=== PATIENT | male | born 1980 | race African-American/Black ===

== ENCOUNTER 2018-09-02 10:48 | Emergency (ER) | payer OTHER ==
[2018-09-02 11:31] VITALS: BP 146/83
--- NOTE | 2018-09-02 11:31 | Emergency Department Report ---
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 Due to findings the following was ordered: XR T-spine ED Disposition for MSE Condition: Stable
--- NOTE | 2018-09-02 12:51 | XRay Report ---
THORACIC SPINE, 2 VIEWS: HISTORY: Upper back pain, radiates down right arm. Normal bone mineralization. No evidence for compression deformity, malalignment, or bone lesion. Mild scoliosis of the thoracic spine is noted. The posterior ribs are intact. The paraspinal soft tissues are within normal limits. IMPRESSION: Mild scoliosis. No evidence for acute injury.
--- NOTE | 2018-09-02 14:31 | Emergency Department Report ---
ED Upper Extremity Inj HPI - General Chief Complaint: Shoulder Injury Stated Complaint: PAIN ON (R) SHOULDER/NECK PAIN Time Seen by Provider: 09/02/18 11:28 Source: patient Mode of arrival: Ambulatory Limitations: No Limitations - History of Present Illness Initial Comments: This is a 37-year-old male who presents to the emergency room with pain to right shoulder radiating down the fingers. Patient reports pain is worse between shoulder blades. Patient states majority of the pain is on the right side. Pain is intermittent and tend on a 10 on pain scale. Patient reports pain is worse with movement. He denies swelling, bruising, warmth, numbness or tingling, or weakness. MD Complaint: Injury to:: right, shoulder Onset/Timin -: month(s) Other Extremity Injury: Shoulder: Right Other Injuries: none Handedness: right Place: home Severity scale (0 -10): 7 Improves With: none Worsens With: movement of extremity Associated Symptoms: denies other symptoms Treatments Prior to Arrival: NSAIDS - Related Data Home Medications Medication Instructions Recorded Confirmed Last Taken Aspirin [Aspirin BABY CHEW TAB] 81 mg PO QDAY 05/01/16 05/01/16 Unknown Previous Rx's Medication Instructions Recorded Last Taken Type AtorvaSTATin [Lipitor] 80 mg PO QHS #30 tablet 07/13/15 Unknown Rx Metoprolol [Lopressor TAB] 25 mg PO BID #60 tablet 07/13/15 Unknown Rx Prasugrel [Effient] 10 mg PO QDAY #30 tablet 07/13/15 Unknown Rx Naproxen [Naprosyn] 500 mg PO TID PRN #20 tablet 09/02/18 Unknown Rx methOCARBAMOL [Robaxin TAB] 500 mg PO BID PRN #15 tab 09/02/18 Unknown Rx Allergies Allergy/AdvReac Type Severity Reaction Status Date / Time No Known Allergies Allergy Verified 09/02/18 10:51 ED Review of Systems ROS: Stated complaint: PAIN ON (R) SHOULDER/NECK PAIN Other details as noted in HPI Constitutional: denies: chills, fever Respiratory: denies: cough, shortness of breath, wheezing Cardiovascular: denies: chest pain, palpitations Gastrointestinal: denies: abdominal pain, nausea, diarrhea Musculoskeletal: arthralgia (right shoulder). denies: back pain, joint swelling Skin: denies: rash, lesions Neurological: denies: headache, weakness, paresthesias Psychiatric: denies: anxiety, depression ED Past Medical Hx - Past Medical History Hx Hypertension: Yes Hx Heart Attack/AMI: Yes Hx Congestive Heart Failure: No Hx Deep Vein Thrombosis: No Additional medical history: HIGH CHOLESTEROL - Surgical History Hx Coronary Stent: Yes (4) Hx Internal Defibrillator: No - Social History Smoking Status: Never Smoker Substance Use Type: None - Medications Home Medications: Home Medications Medication Instructions Recorded Confirmed Last Taken Type AtorvaSTATin [Lipitor] 80 mg PO QHS #30 tablet 07/13/15 05/01/16 Unknown Rx Metoprolol [Lopressor TAB] 25 mg PO BID #60 tablet 07/13/15 05/01/16 Unknown Rx Prasugrel [Effient] 10 mg PO QDAY #30 tablet 07/13/15 05/01/16 Unknown Rx Aspirin [Aspirin BABY CHEW TAB] 81 mg PO QDAY 05/01/16 05/01/16 Unknown History Naproxen [Naprosyn] 500 mg PO TID PRN #20 tablet 09/02/18 Unknown Rx methOCARBAMOL [Robaxin TAB] 500 mg PO BID PRN #15 tab 09/02/18 Unknown Rx ED Physical Exam - General Limitations: No Limitations General appearance: alert, in no apparent distress - Neck Neck exam: Present: normal inspection - Respiratory Respiratory exam: Present: normal lung sounds bilaterally. Absent: respiratory distress - Cardiovascular Cardiovascular Exam: Present: regular rate, normal rhythm. Absent: systolic murmur, diastolic murmur, rubs, gallop - GI/Abdominal GI/Abdominal exam: Present: soft, normal bowel sounds - Rectal Rectal exam: Present: deferred - Expanded Upper Extremity Exam Right Shoulder Exam: Present: normal inspection, full ROM. Absent: tenderness, swelling, abrasion, laceration, ecchymosis, deformity, crepidus, dislocation, erythema, tenderness over AC joint Upper Arm exam: Present: normal inspection, full ROM Elbow exam: Present: normal inspection, full ROM Forearm Wrist exam: Present: normal inspection, full ROM Hand Wrist exam: Present: normal inspection, full ROM Neuro motor exam: Present: wrist extension intact, thumb opposition intact, thumb IP flexion intact, thumb adduction intact, fingers 2-5 abduction intact Neurosensory exam: Present: radial nerve intact, ulnar nerve intact, median nerve intact Vascular: Present: normal capillary refill, radial pulse (2+) - Back Exam Back exam: Present: full ROM, paraspinal tenderness. Absent: muscle spasm, vertebral tenderness, rash noted - Neurological Exam Neurological exam: Present: alert, oriented X3, normal gait - Expanded Neurological Exam Expanded Patient oriented to: Present: person, place, time Speech: Present: fluid speech Sensory exam: Upper Extremity Light Touch: Normal, Upper Extremity Pin Prick: Normal, Upper Extremity Temperature: Normal, UE 2 Point Discrimination: Normal Motor strength exam: RUE: 5 DTR: bicep (R): 4+, bicep (L): 4+ Best Eye Response ([place]): (4) open spontaneously Best Motor Response ([place]): (6) obeys commands Best Verbal Response ([place]): (5) oriented [place] Total: 15 - Psychiatric Psychiatric exam: Present: normal affect, normal mood - Skin Skin exam: Present: warm, dry, intact, normal color. Absent: rash ED Course Vital Signs 09/02/18 11:29 Temperature 98 F Pulse Rate 70 Respiratory 18 Rate Blood Pressure 146/83 O2 Sat by Pulse 98 Oximetry ED Medical Decision Making - Radiology Data Radiology results: report reviewed THORACIC SPINE, 2 VIEWS: HISTORY: Upper back pain, radiates down right arm. Normal bone mineralization. No evidence for compression deformity, malalignment, or bone lesion. Mild scoliosis of the thoracic spine is noted. The posterior ribs are intact. The paraspinal soft tissues are within normal limits. IMPRESSION: Mild scoliosis. No evidence for acute injury. - Medical Decision Making Patient was examined by me. Vitals are normal and patient is in no acute distress. Obtained a x-ray of thoracic spine. X-rays dictated by radiologist's report for review by myself. Mild scoliosis. No evidence for acute injury. Patient informed of results. Findings are susceptible of muscle strain. Start Robaxin and naproxen for pain. Plan discussed with patient to discharge home and treat outpatient. He agrees with ER plan. Patient discharged home in stable condition. Follow up with PCP in 2-3 days. Critical care attestation.: If time is entered above; I have spent that time in minutes in the direct care of this critically ill patient, excluding procedure time. ED Disposition Clinical Impression: Back pain Qualifiers: Back pain location: thoracic back pain Chronicity: acute Back pain laterality: right Qualified Code(s): M54.6 - Pain in thoracic spine Muscle strain of right scapular region Qualifiers: Encounter type: initial encounter Qualified Code(s): S46.911A - Strain of unspecified muscle, fascia and tendon at shoulder and upper arm level, right arm, initial encounter Disposition: TO HOME OR SELFCARE Is pt being admited?: No Does the pt Need Aspirin: No Condition: Stable Instructions: Muscle Strain (ED) Additional Instructions: Rest Use ice or heat on affected area for 20 minutes and off for 2 hours. Take pain medication as needed for pain. Don't drive or operate heavy machinery while taking muscle relaxers because they may cause drowsiness. Follow up with Primary Care Provider in 2-3 days. Prescriptions: Naproxen [Naprosyn] 500 mg PO TID PRN #20 tablet PRN Reason: Pain , Severe (7-10) methOCARBAMOL [Robaxin TAB] 500 mg PO BID PRN #15 tab PRN Reason: Muscle Spasm Referrals: JACQUES ESQUIVEL MD [Primary Care Provider] - 3-5 Days [facility] [Provider Group] - 3-5 Days NEGAR ZAMARRIPA MD [Staff Physician] - 3-5 Days Forms: Work/School Release Form(ED) Time of Disposition: 14:36
== END 2018-09-02 14:55 | disposition home or self-care (01) ==
LOC: ED 10:48
DX: S46.911A Strain of unspecified muscle, fascia and tendon at shoulder and upper arm level, right arm, initial encounter (principal); M54.9 Dorsalgia, unspecified; I10 Essential (primary) hypertension; I25.2 Old myocardial infarction; E78.00 Pure hypercholesterolemia, unspecified; Z79.82 Long term (current) use of aspirin; Z95.1 Presence of aortocoronary bypass graft; X58.XXXA Exposure to other specified factors, initial encounter; Y93.89 Activity, other specified; Y92.098 Other place in other non-institutional residence as the place of occurrence of the external cause; Y99.8 Other external cause status
CPT/HCPCS: 72072; 99283